=== PATIENT | male | born 1955 | race Caucasian/White ===

== ENCOUNTER 2018-10-04 06:56 | Outpatient (CLI) | payer MEDICARE ==
--- NOTE | 2018-10-04 07:51 | ULT ---
ABDOMINAL ULTRASOUND HISTORY: Abdominal pain. FINDINGS: Liver: Increased echogenicity likely attributable to diffuse fatty infiltration. Given the degree of fatty infiltration, this does limit a revision of the hepatic parenchyma. However, no definite focal hepatic lesion is visualized. Gallbladder: No gallbladder calculi are visualized. There is no gallbladder wall thickening or perich olecystic fluid. Common duct: Common duct is normal in caliber measuring0.4 cm in diameter. Pancreas: Obscured by bowel gas and not well evaluated. IVC: Obscured by bowel gas and not visualized. Aorta: Partially visualized, and where visualized is normal in caliber. Spleen: Within normal limits. Kidneys: Kidneys demonstrate a normal sonographic appearance bilaterally with the right kidney measur ing11.26 cm in length, and the left kidney measures 11.6 cm in length. IMPRESSION: 1. Diffuse fatty infiltration of the liver which limits evaluation of the hepatic parenchyma. 2. No gallbladder calculi are visualized, and the common duct is normal in caliber. 3. Nonvisualization of the pancreas and IVC secondary to shadowing from bowel gas.
== END 2018-10-04 06:57 | disposition home or self-care (01) ==
LOC: BICULT 06:56
PROVIDERS: ATTEND Family Medicine
DX: R10.84 Generalized abdominal pain (principal); R14.0 Abdominal distension (gaseous); K76.0 Fatty (change of) liver, not elsewhere classified
CPT/HCPCS: 76700

== ENCOUNTER 2018-12-09 09:38 | Outpatient (CLI) | payer MEDICARE | END 2018-12-09 09:39 | disposition home or self-care (01) | LOC: CTENTCT 09:38 | PROVIDERS: ATTEND Otolaryngology Plastic Surgery within the Head & Neck | DX: J34.2 Deviated nasal septum (principal) | CPT/HCPCS: 70486 ==

== ENCOUNTER 2019-01-13 09:40 | Emergency (ER) | payer MEDICARE ==
[2019-01-13 10:31] LABS: #Basophils 0.1 thou/uL (0.0-0.2); #Eosinphils 0.7 thou/uL (0.0-0.7); #Lymphocytes 3.1 thou/uL (1.20-3.40); #Monocytes 0.6 thou/uL (0.11-0.59); #Neutrophils 7.7 thou/uL (1.40-6.50); %Basophils 0.9 % (0.0-1.0); %Eosinophils 5.5 % (0.0-10.0); %Lymphocytes 25.5 % (21.0-51.0); %Neutrophils 63.2 % (42.0-75.0); Bilirubin Negative (Negative); Blood, Urine Negative (Negative); Clarity Clear (Clear); Glucose, Urine (Dipstick) Negative (Negative); Hemoglobin 15.9 g/dL (14.0-18.0); Leukocyte Negative (Negative); Mean Corpuscular Hemoglobin 31.5 pg (27.0-31.0); Mean Corpuscular Volume 95.4 fL (78.0-98.0); Mean Platelet Volume 7.4 fL (7.4-10.4); Nitrite Negative (Negative); Platelet Count 288 thou/uL (130-400); Protein, Urine (Dipstick) Negative (Neg-Trace); RBC Distribution Width 12.1 % (11.5-14.5); Red Blood Cell (RBC) Count 5.06 mill/uL (4.70-6.10); Urobilinogen 0.2 mg/dL (Less than 2); White Blood Cell (WBC) Count 12.1 thou/uL (4.8-10.8)
[2019-01-13 10:58] LABS: ALT (SGPT) 19 U/L (8-55); AST (SGOT) 16 U/L (5-34); Albumin 3.8 g/dL (3.4-4.8); Alkaline Phosphatase 73 U/L (40-150); Anion Gap 12 mmol/L (10-20); BUN (Urea Nitrogen) 14 mg/dL (8.4-25.7); Bilirubin, Total 0.4 mg/dL (0.2-1.2); Calc. Creatinine Clearance 0 mL/min (70-130); Calcium 9.3 mg/dL (7.8-10.44); Carbon Dioxide 27 mmol/L (23-31); Chloride 105 mmol/L (98-107); Estimated GFR-MDRD 87; Globulin 3.3 g/dL (2.4-3.5); Glucose 98 mg/dL (80-115); Lipase 22 U/L (8-78); Potassium 3.8 mmol/L (3.5-5.1); Protein, Total 7.1 g/dL (5.8-8.1); Sodium 140 mmol/L (136-145)
--- NOTE | 2019-01-13 13:25 | CT ---
CT ABDOMEN AND PELVIS WITH CONTRAST: Date: 01/13/19 Axial tomograms obtained with IV enhancement and with oral contrast. INDICATION: Right flank pain. Abdominal pain. FINDINGS: Lung bases clear. Liver, spleen, and pancreas appear unremarkable. Adrenal glands are normal. Review of kidneys show mild right hydronephrosis and mild columning of the right ureter to the bladde r. There is a large calculus at the right UVJ which measures approximately 10 mm. Smal nonobstructing calculus in the mid pole collecting structures of the right kidney measuring in t he 2-3 mm range. There is a mid pole calculus in the left kidney measuring 3 mm. Upper pole calculus in the left kidney measures 3 mm. Small bowel loops appear normal. Colon unremarkable by CT. Aorta shows atherosclerotic changes without aneurysm. No adenopathy. Imags through the pelvis show mildly enlarged prostate impinging on the floor fofthe bladder. No roby opathy. IMPRESSION: 1. 1.0 cm calculus at the right UVJ. Mild right hydronephrosis. 2. Nonobstructing calculi in upper collecting structures of both kidneys as described. POS: JAVIER
== END 2019-01-13 13:32 | disposition home or self-care (01) ==
LOC: SCSER 09:40
DX: N20.0 Calculus of kidney (principal); I25.10 Atherosclerotic heart disease of native coronary artery without angina pectoris; I25.2 Old myocardial infarction; E78.5 Hyperlipidemia, unspecified; I10 Essential (primary) hypertension; F17.210 Nicotine dependence, cigarettes, uncomplicated; Z79.82 Long term (current) use of aspirin; Z79.899 Other long term (current) drug therapy
CPT/HCPCS: 74177; 80053; 81003; 83690; 85025

== ENCOUNTER 2019-01-21 06:02 | Day surgery (SDC) | payer MEDICARE ==
[2019-01-20 14:23] VITALS: BMI 32.5
[2019-01-21] MEDS ORDERED: ceFAZolin Sodium (SDC) 2 GM/100 ML BAG ONE (06:31)
[2019-01-21] MEDS ORDERED: Iothalamate Meglumine 60% 50 ML VIAL FS ONE (06:57)
[2019-01-21] MEDS ORDERED: Fentanyl 100 MCG/2 ML VIAL ONE ×2 (07:06→10:07)
--- NOTE | 2019-01-21 11:24 | RAD ---
EXAM: Retrograde IVP HISTORY: Kidney stones COMPARISON: CT abdomen/pelvis 01/13/2019 FINDINGS/IMPRESSION: Limited intraoperative fluoroscopic views of the retrograde IVP were submitted f or interpretation. There is an extrarenal pelvis on the right. There is no evidence of hydronephrosis. No obvious filling defects are seen. A double-J ureteral stent is eventually placed in good position.
--- NOTE | 2019-01-21 12:10 | OP ---
DATE OF PROCEDURE: 01/21/2019 PREOPERATIVE DIAGNOSIS: Right distal ureteral stone. POSTOPERATIVE DIAGNOSIS: Right distal ureteral stone. PROCEDURE PERFORMED: Cysto, right rigid ureteroscopy, laser lithotripsy, stone retrieval and stent placement. ANESTHESIA: General. ESTIMATED BLOOD LOSS: Minimal. DRAINS: A 6 x 26 Polaris double-J stent with a string attached to it, passing the stone fragments. FINDINGS: There was a greater than 1-cm stone in the right ureterovesical junction in a pseudoureterocele. It was broken up with the laser into numerous fragments, which were then basketed and dropped in the bladder and then he elliked out of the bladder. DESCRIPTION OF PROCEDURE: After obtained written and verbal consent from the patient, after receiving IV antibiotics, he was taken to the operating suite. He was placed in a supine position on the treatment table. PlexiPulses were placed on his lower extremities and turned on. He was given a general anesthetic and oral obturator intubation. He was then placed in dorsal lithotomy position, sterilely prepped and draped. The C-arm was placed over him and a chief engineer research KUB was taken with this unit. Cystoscopy was performed with a 22-[place] Islander sheath. This was well lubricated and passed under direct vision through the male urethra and into the urinary bladder with the aid of a 30-degree lens and a video camera and monitor. The bladder was filled and emptied number of times and examined both with 30-degree and 70-degree lens. The right ureteral orifice was of normal caliber. There was evidence of what is most likely a pseudoureterocele, which was where the stone was sitting in. I could not feed a guidewire across this because the stone being in it, but we were able to feed the angle tip Glidewire by it and then run a 5-[place] Islander Pollack catheter up into the area of the proximal ureter and renal pelvis. The Glidewire was removed and injected contrast revealing a slightly dilated right collecting system without any other abnormality. A green wire was then placed through the Pollack catheter and the Pollack catheter was removed and the instruments were removed, leaving the green wire in. We then came in and brought in a small caliber graduated rigid ureteroscope and with aid of a video camera and monitor, passed through the male urethra into the bladder and then into the right ureteral orifice adjacent to the guidewire. The stone was easily seen. Some photographs were taken of it and the holmium laser fiber was brought in to break up the stone into multiple fragments. We then used a Nitinol basket to remove these fragments and drop them into the bladder. In the last check, we went up to mid ureter, found no other stones or stone fragments at all remaining and the ureteroscope was removed under direct vision. We then passed the cystoscope back, well-lubricated 22-[place] Islander through into the bladder and used an VisualCV evacuator to evacuate the small stone fragments and reinspected and finding no sizable stone remaining following the urinary bladder. We then over our existing guidewire passed the 6 x 26 Polaris double-J stent pushing up in place with aid of a pusher, so its proximal end coiled in the renal pelvis and its distal end coiled in the bladder with the wires removed. The string was left exiting the urethral meatus for few centimeters. The patient at the point was awakened and extubated and taken by stretcher to the recovery room. Job ID: [id number]
[2019-01-24 13:10] LABS: CA Oxalate Monohydrate 95 % (.); Color Brown (.); Stone Weight 121.3 mg (.)
== END 2019-01-21 14:10 | disposition home or self-care (01) ==
LOC: SDC 06:02
PROVIDERS: ATTEND Urology
PROC: 0TF68ZZ Fragmentation in Right Ureter, Via Natural or Artificial Opening Endoscopic (ICD-10-PCS; principal; 2019-01-21)
PROC: 0T768DZ Dilation of Right Ureter with Intraluminal Device, Via Natural or Artificial Opening Endoscopic (ICD-10-PCS; 2019-01-21)
DX: N20.1 Calculus of ureter (principal); E78.00 Pure hypercholesterolemia, unspecified; I25.10 Atherosclerotic heart disease of native coronary artery without angina pectoris; I25.2 Old myocardial infarction; Z88.6 Allergy status to analgesic agent; Z79.82 Long term (current) use of aspirin; Z79.899 Other long term (current) drug therapy
CPT/HCPCS: 74420; 82365; 88300; C1758; C1769; J0690; J3010

== ENCOUNTER 2019-06-25 09:16 | Day surgery (SDC) | payer MEDICARE ==
[2019-06-24 12:09] VITALS: BMI 31.5
[2019-06-25] MEDS ORDERED: PROPOFOL 200 MG/20 ML VIAL ONE (09:44)
[2019-06-25] MEDS ORDERED: Glycopyrrolate 0.2 MG/ML 5 ML SYRINGE ONE (09:44)
[2019-06-25] MEDS ORDERED: Dexamethasone 20 MG/5 ML VIAL ONE (09:44)
[2019-06-25] MEDS ORDERED: Ondansetron PF 4 MG/2 ML Vial ONE (09:44)
[2019-06-25] MEDS ORDERED: Rocuronium Bromide 10 MG/ML (10ML VIAL) ONE (09:44)
[2019-06-25] MEDS ORDERED: Lidocaine 1% PF 5 ML VIAL ONE (09:44)
[2019-06-25] MEDS ORDERED: AFRIN NASAL MIST 15 ML BOT ONE (10:11)
[2019-06-25 10:22] LABS: Hemoglobin 16.9 g/dL (14.0-18.0)
[2019-06-25] MEDS ORDERED: Lidocaine 1% w/Epinephrine 1:100K 20 ML VIAL ONE (10:31)
[2019-06-25] MEDS ORDERED: Bacitracin Zinc Ointment 30 gm TUBE ONE (10:31)
[2019-06-25 10:32] LABS: Anion Gap 11 mmol/L (10-20); BUN (Urea Nitrogen) 13 mg/dL (8.4-25.7); Calc. Creatinine Clearance 124 mL/min (70-130); Calcium 9.5 mg/dL (7.8-10.44); Carbon Dioxide 25 mmol/L (23-31); Chloride 106 mmol/L (98-107); Estimated GFR-MDRD Greater than 90; Glucose 86 mg/dL (80-115); Potassium 3.9 mmol/L (3.5-5.1); Sodium 138 mmol/L (136-145)
[2019-06-25] MEDS ORDERED: Fentanyl 250 MCG/5 ML VIAL ONE (10:57)
[2019-06-25] MEDS ORDERED: hydrALAZINE 20 MG/ML VIAL ONE (11:57)
[2019-06-25] MEDS ORDERED: Fentanyl 100 MCG/2 ML VIAL ONE ×2 (11:57→12:27)
[2019-06-25] MEDS ORDERED: HYDROcodone/Acetaminophen 5/325 mg Tablet ONE ×2 (13:23→13:54)
--- NOTE | 2019-06-26 11:15 | OP ---
DATE OF PROCEDURE: 06/25/2019 PREOPERATIVE DIAGNOSES: 1. Chronic rhinosinusitis. 2. Nasal septal deviation. 3. Bilateral inferior turbinate hypertrophy. 4. Nasal obstruction. POSTOPERATIVE DIAGNOSES: 1. Chronic rhinosinusitis. 2. Nasal septal deviation. 3. Bilateral inferior turbinate hypertrophy. 4. Nasal obstruction. PROCEDURES PERFORMED: 1. Bilateral endoscopic sinus surgery, total ethmoidectomies. 2. Bilateral endoscopic sinus surgery, maxillary antrostomies. 3. Bilateral endoscopic sinus surgery, frontal sinusotomies. 4. Bilateral endoscopic sinus surgery, sphenoidotomies. 5. Nasal septoplasty. 6. Bilateral inferior turbinate submucosal resection. 7. Outfracture of bilateral inferior turbinates. ESTIMATED BLOOD LOSS: 50 mL. COMPLICATIONS: None. ANESTHESIA: GETA. DESCRIPTION OF PROCEDURE: NASAL SEPTOPLASTY AND BILATERAL INFERIOR TURBINATE SUBMUCOSAL RESECTION: The patient was taken to the operating room and GETA was obtained by the anesthesia staff. Afrin pledgets were then placed into the nasal cavity bilaterally. The patient was placed into the beach chair position and was prepped and draped for standard nasal surgical procedures. Following this, the Afrin pledgets were removed and 1% lidocaine with 1:100,000 epinephrine was injected via a 27 gauge needle into the nasal septum, the inferior turbinate and the middle turbinate bilaterally. Following this, a [place] incision was made on the left nasal septum and mucoperichondrial flaps were elevated. A strong 2 cm caudal and dorsal cartilage strut was left intact as the deviated portions of the nasal cartilage and bone was removed. A 4-0 gut stitch was used to reapproximate the nasal mucoperichondrial flaps as well as close the [place] incision. Following this, the submucosal microdebrider was used to puncture and submucosally resect the anterior-inferior portions of the hypertrophic inferior turbinates. The inferior turbinates were laterally outfractured with a [place] elevator. BILATERAL ENDOSCOPIC SINUS SURGERY, TOTAL ETHMOIDECTOMY AND MAXILLARY ANTROSTOMIES: Following this, 1% lidocaine with 1:100,000 epinephrine were injected into the middle turbinates and lateral nasal wall bilaterally. Following this, the 0-degree endoscope was used to visualize the middle turbinate and the middle turbinate was medially fractured using a [place] elevator. Following this, the uncinate process was identified and was examined. The uncinate process was noted to be inflamed and laterally displaced bilaterally. Following this, a ball-ended probe was used to anteriorly fracture the uncinate process bilaterally. Following this, the 0-degree microdebrider and the up-biting [place]akes[place] forceps were used to remove the uncinate process bilaterally. Following this, the natural maxillary sinus ostia was identified with the 0-degree endoscope and the ball-ended probe. The natural maxillary ostia were then widened using a 40-degree microdebrider and the straight [place] forceps bilaterally. Following this, the ethmoidal bulla was identified bilaterally. A 0-degree microdebrider was used to puncture the ethmoidal bulla on its medial and inferior aspect bilaterally. Following this, the 0-degree microdebrider and the up-biting [place]akes[place] forceps were used to remove the ethmoidal bulla. Following this, the grand lamella was identified posterior to this area and was punctured using the 0-degree microdebrider bilaterally. Following this, the ethmoidal cells were opened from the posterior to the anterior using the 0-degree microdebrider, the 40-degree microdebrider and the up-biting [place]akes[place] forceps bilaterally. Following this, the 45-degree endoscope and the 40-degree microdebrider blade were used to further remove the anterior ethmoidal cells to the level of the frontal sinus recess bilaterally. Following this, the 45-degree endoscope was advanced in the nasal cavity and the remnants of the anterior ethmoidal cells were opened using the 40-degree microdebrider blade and up-biting Blakesley forceps. This exposed the frontal sinus recess and frontal sinus ostia bilaterally. The frontal sinus ostia were identified and was then widened using a 40-degree microdebrider blade bilaterally. Following this, a 0-degree endoscope was advanced through the previous ethmoidectomies and the attachment of the superior turbinate to the posterior nasal wall was identified. Staying just medial and inferior to this attachment, a [place] tip suction was used to create a sphenoidotomy bilaterally. Following this, the 0-degree microdebrider was inserted into the sphenoidotomy and the sphenoidotomy was widened in a medial and inferior direction using the microdebrider bilaterally. Following this, the nasal cavity was irrigated. The NasoPore packing was placed within the middle meatus bilaterally and the inferior turbinates were then laterally fractured using a [place] elevator. March splints were then placed and secured. The patient tolerated the procedure well. Job ID: [id number]
--- NOTE | 2019-07-01 09:45 | EKG ---
Test Reason : PREOP Blood Pressure : / mmHG Vent. 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
== END 2019-06-25 14:20 | disposition home or self-care (01) ==
LOC: SDC 09:16
PROVIDERS: ATTEND Otolaryngology Plastic Surgery within the Head & Neck
PROC: 099R8ZZ Drainage of Left Maxillary Sinus, Via Natural or Artificial Opening Endoscopic (ICD-10-PCS; principal; 2019-06-25)
PROC: 099Q8ZZ Drainage of Right Maxillary Sinus, Via Natural or Artificial Opening Endoscopic (ICD-10-PCS; 2019-06-25)
PROC: 09BT8ZZ Excision of Left Frontal Sinus, Via Natural or Artificial Opening Endoscopic (ICD-10-PCS; 2019-06-25)
PROC: 09BS8ZZ Excision of Right Frontal Sinus, Via Natural or Artificial Opening Endoscopic (ICD-10-PCS; 2019-06-25)
PROC: 09BL8ZZ Excision of Nasal Turbinate, Via Natural or Artificial Opening Endoscopic (ICD-10-PCS; 2019-06-25)
PROC: 09CX8ZZ Extirpation of Matter from Left Sphenoid Sinus, Via Natural or Artificial Opening Endoscopic (ICD-10-PCS; 2019-06-25)
PROC: 09CW8ZZ Extirpation of Matter from Right Sphenoid Sinus, Via Natural or Artificial Opening Endoscopic (ICD-10-PCS; 2019-06-25)
PROC: 09BV8ZZ Excision of Left Ethmoid Sinus, Via Natural or Artificial Opening Endoscopic (ICD-10-PCS; 2019-06-25)
PROC: 09BU8ZZ Excision of Right Ethmoid Sinus, Via Natural or Artificial Opening Endoscopic (ICD-10-PCS; 2019-06-25)
PROC: 09BM8ZZ Excision of Nasal Septum, Via Natural or Artificial Opening Endoscopic (ICD-10-PCS; 2019-06-25)
DX: J32.9 Chronic sinusitis, unspecified (principal); J34.2 Deviated nasal septum; J34.3 Hypertrophy of nasal turbinates; J30.9 Allergic rhinitis, unspecified; J34.89 Other specified disorders of nose and nasal sinuses; I25.2 Old myocardial infarction; F17.210 Nicotine dependence, cigarettes, uncomplicated; Z79.82 Long term (current) use of aspirin; Z79.899 Other long term (current) drug therapy; Z88.6 Allergy status to analgesic agent; Z95.5 Presence of coronary angioplasty implant and graft
CPT/HCPCS: 36415; 80048; 85014; 85018; 93005; 93010; J0360; J1100; J2001; J2405; J2704; J3010

== ENCOUNTER 2020-08-04 11:04 | Outpatient (CLI) | payer MEDICARE ==
--- NOTE | 2020-08-04 13:13 | CT ---
Exam: Noncontrast chest CT; CT lung scan low dose HISTORY:Current smoker. 1 pack a day for over 40 years. Lung screening. Nicotine dependence. COMPARISON: None TECHNIQUE: Low-dose screening lung CT is performed utilizing institutional protocol FINDINGS: Lung screening specific (Lung-RADS): Category 1. Negative exam. There are no suspicious masses or nod ules throughout the lung parenchyma. Potential significant incidentals (Lung-RADS category S): None Pulmonary incidentals:Extensive emphysematous change involving the left and right upper lobe. There i s a partially calcified granuloma in the left upper lobe measuring 0.5 cm. There is a densely calcified granuloma in the left lower lobe measuring 0.9 cm. There is a 0.3 cm solid nodule in the ri ght upper lobe. There is a pleural-based density abutting the junction of the right major fissure and minor fissure measuring 0.6 cm. Focal area of pleural thickening and scarring is suspected. There is a soft tissue mass with associated calcification abutting the minor fissure, measuring 0.9 cm. The possibility of a calcified subpleural lymph node is favored. Other incidentals: Coronary artery calcifications and calcified lymph nodes in the mediastinum are id entified. IMPRESSION: 1. Lung-RADS 1 negative exam. There are no suspicious masses or nodules throughout the lung parenchym a. 2. Lung-RADS category S: Negative. No new or unknown potential significant incidental findings requir ing urgent additional evaluation 3. Other incidentals as above. Recommendation: Continued routine annual low-dose lung screening CT. Follow-up in one year. Transcribed Date/Time: 08/04/2020 1:16 PM
== END 2020-08-04 11:05 | disposition home or self-care (01) ==
LOC: BICCT 11:04
PROVIDERS: ATTEND Family Medicine
DX: Z12.2 Encounter for screening for malignant neoplasm of respiratory organs (principal); F17.210 Nicotine dependence, cigarettes, uncomplicated; J84.10 Pulmonary fibrosis, unspecified; R91.1 Solitary pulmonary nodule; I25.10 Atherosclerotic heart disease of native coronary artery without angina pectoris
CPT/HCPCS: 71271

== ENCOUNTER 2020-10-08 08:23 | Outpatient (CLI) | payer MEDICARE ==
[2020-10-08 12:21] LABS: Bilirubin Neg (Negative); Blood, Urine 10 (Negative); Clarity Clear (Clear); Glucose, Urine (Dipstick) Normal (Negative); Ketone, Urine Negative (Negative); Leukocyte 25 (Negative); Nitrite Negative (Negative); Protein, Urine (Dipstick) Negative (Neg-Trace); Specific Gravity, Urine 1.015 (1.002-1.036); Urobilinogen Normal mg/dL (Less than 2)
[2020-10-08 12:27] LABS: #Basophils 0.1 10x3/uL (0.0-0.2); #Eosinphils 0.4 10x3/uL (0.0-0.5); #Neutrophils 9.4 10x3/uL (1.5-8.4); %Basophils 0.6 % (0.0-2.0); %Lymphocytes 18.9 % (18.0-47.0); Hemoglobin 16.6 g/dL (13.5-17.5); Mean Corpuscular HGB CONC 31.9 g/dL (32.0-36.0); Mean Corpuscular Hemoglobin 30.7 pg (27.0-33.0); Mean Corpuscular Volume 96.1 fl (81.2-95.1); Mean Platelet Volume 10.4 fl (7.4-10.4); Platelet Count 346 10x3/uL (150-450); RBC Distribution Width 13.4 % (11.5-14.5); Red Blood Cell (RBC) Count 5.41 10x6/uL (4.32-5.72); White Blood Cell (WBC) Count 13.5 10x3/uL (3.5-10.5)
[2020-10-08 13:05] LABS: Anion Gap 17 mmol/L (10-20); BUN (Urea Nitrogen) 13 mg/dL (8.4-25.7); Calc. Creatinine Clearance 0 mL/min (70-130); Calcium 9.5 mg/dL (7.8-10.44); Carbon Dioxide 25 mmol/L (23-31); Chloride 102 mmol/L (98-107); Glucose 99 mg/dL (80-115); Potassium 4.7 mmol/L (3.5-5.1); Sodium 139 mmol/L (136-145)
[2020-10-08 13:06] LABS: Bacteria/HPF None Seen HPF (None Seen); RBC/HPF 0-3 HPF (0-3); Squamous Epithelial None Seen HPF (0-3); WBC/HPF None Seen HPF (0-3)
[2020-10-08 20:11] LABS: SARS-CoV-2 PCR by NAA Not Detected (NotDetected)
== END 2020-10-08 08:24 | disposition home or self-care (01) ==
LOC: LABBT 08:23
PROVIDERS: ATTEND Orthopaedic Surgery
DX: Z01.818 Encounter for other preprocedural examination (principal); G56.01 Carpal tunnel syndrome, right upper limb; Z20.822 Contact with and (suspected) exposure to COVID-19
CPT/HCPCS: 80048; 81001; 85025; 93005; U0003; U0005; 87635; 93010

== ENCOUNTER 2020-10-13 06:55 | Day surgery (SDC) | payer MEDICARE ==
[2020-10-12 11:36] VITALS: BMI 30.8
[2020-10-13] MEDS ORDERED: Midazolam HCl 2 mg/2 ml Vial ONE (08:41)
[2020-10-13] MEDS ORDERED: Fentanyl 100 MCG/2 ML VIAL ONE (08:41)
[2020-10-13] MEDS ORDERED: Lidocaine 1% (PF) 30 ML VIAL ONE (08:42)
[2020-10-13] MEDS ORDERED: PROPOFOL 200 MG/20 ML VIAL ONE (08:57)
[2020-10-13] MEDS ORDERED: Ondansetron PF 4 MG/2 ML Vial ONE (08:57)
[2020-10-13] MEDS ORDERED: Dexamethasone 20 MG/5 ML VIAL ONE (08:57)
[2020-10-13] MEDS ORDERED: Lidocaine 1% PF 5 ML VIAL ONE (08:57)
== END 2020-10-13 11:30 | disposition home or self-care (01) ==
LOC: SDC 06:55
PROVIDERS: ATTEND Orthopaedic Surgery
PROC: 01N50ZZ Release Median Nerve, Open Approach (ICD-10-PCS; principal; 2020-10-13)
DX: G56.01 Carpal tunnel syndrome, right upper limb (principal); I25.2 Old myocardial infarction; M19.90 Unspecified osteoarthritis, unspecified site; F17.210 Nicotine dependence, cigarettes, uncomplicated; Z86.010 Personal history of colon polyps; Z79.899 Other long term (current) drug therapy; Z88.6 Allergy status to analgesic agent; Z95.5 Presence of coronary angioplasty implant and graft; Z98.890 Other specified postprocedural states
CPT/HCPCS: J0690; J1100; J2001; J2250; J2405; J2704; J3010

== ENCOUNTER 2022-03-03 14:37 | Emergency (ER) | payer MEDICARE ==
[2022-03-03 16:27] LABS: #Eosinphils 0.1 thou/uL (0.0-0.7); #Lymphocytes 1.3 thou/uL (1.20-3.40); #Monocytes 1.6 thou/uL (0.11-0.59); %Basophils 0.1 % (0.0-1.0); %Eosinophils 0.7 % (0.0-10.0); %Lymphocytes 8.2 % (21.0-51.0); %Monocytes 9.9 % (0.0-10.0); %Neutrophils 81.1 % (42.0-75.0); Mean Corpuscular HGB CONC 33.8 g/dL (32.0-36.0); Mean Corpuscular Hemoglobin 32.9 pg (27.0-31.0); Mean Corpuscular Volume 97.1 fL (78.0-98.0); Mean Platelet Volume 6.9 fL (7.4-10.4); Platelet Count 348 thou/uL (130-400); RBC Distribution Width 11.8 % (11.5-14.5); Red Blood Cell (RBC) Count 4.86 mill/uL (4.70-6.10); White Blood Cell (WBC) Count 16.1 thou/uL (4.8-10.8)
[2022-03-03] MEDS ORDERED: Morphine 4 MG/ML VIAL ONE (16:51)
[2022-03-03 16:55] LABS: ALT (SGPT) 13 U/L (8-55); AST (SGOT) 15 U/L (5-34); Albumin 3.9 g/dL (3.4-4.8); Alkaline Phosphatase 70 U/L (40-110); Anion Gap 16 mmol/L (10-20); BUN (Urea Nitrogen) 12 mg/dL (8.4-25.7); Calc. Creatinine Clearance 0 mL/min (70-130); Calcium 9.3 mg/dL (7.8-10.44); Carbon Dioxide 21 mmol/L (23-31); Chloride 104 mmol/L (98-107); Estimated GFR 94; Globulin 3.6 g/dL (2.4-3.5); Glucose 92 mg/dL (80-115); Potassium 3.9 mmol/L (3.5-5.1); Protein, Total 7.5 g/dL (5.8-8.1); Sodium 137 mmol/L (136-145)
[2022-03-03] MEDS ORDERED: Fluconazole 100 MG TAB PO SCH (17:45)
== END 2022-03-03 17:46 | disposition home or self-care (01) ==
LOC: ERS 14:37
DX: N48.1 Balanitis (principal); F17.210 Nicotine dependence, cigarettes, uncomplicated
CPT/HCPCS: 80053; 85025; 94760; 96374; J2270